=== PATIENT | female | born 1985 | race Caucasian/White ===

== ENCOUNTER 2020-06-19 11:59 | Emergency (ER) | payer SELFPAY ==
[~2020-06-19] VITALS: Ht 152.4 cm; Wt 68.0 kg
--- NOTE | 2020-06-19 12:11 | NUR ---
awaiting for MD to see
--- NOTE | 2020-06-19 12:11 | NUR ---
right ankle pain x 2 days
--- NOTE | 2020-06-19 12:42 | NUR ---
Patient discharged to home in stable condition. Written and verbal after care instructions given. Patient verbalizes understanding of instruction.
[2020-06-19 12:43] VITALS: BP 121/82
== END 2020-06-19 12:43 | disposition home or self-care (01) ==
LOC: ER 11:59
DX: M25.571 Pain in right ankle and joints of right foot (principal); Z98.890 Other specified postprocedural states; Z88.8 Allergy status to other drugs, medicaments and biological substances
CPT/HCPCS: 73610-TC

== ENCOUNTER 2020-08-22 02:50 | Emergency (ER) | payer SELFPAY ==
--- NOTE | 2020-08-22 02:56 | NUR ---
PT CHANGED HER MIND AND DECIDED TO LEAVE BEFORE TRIAGE ASSESSMENT DONE.
== END 2020-08-22 02:56 | disposition left against medical advice (07) ==
LOC: ER 02:53
DX: Z53.21 Procedure and treatment not carried out due to patient leaving prior to being seen by health care provider (principal)